=== PATIENT | female | born 1980 | race African-American/Black ===

== ENCOUNTER 2016-12-17 15:45 | Emergency (ER) | payer BC, OTHER ==
[~2016-12-17] VITALS: Ht 175.3 cm; Wt 138.8 kg
[~2016-12-17 15:45] MED LIST: CHOL10003 PO; DULO20CA PO; HYDR1TAB12 PO; MULT-55 PO; MULT1TAB52 PO; NAPR220C4 PO; NORG1TAB6 PO; VENTOLIN HFA18 GM INH
[2016-12-17 15:54] VITALS: BP 211/114
[2016-12-17] MEDS ORDERED: CYCL10TA2 PO (16:18)
[2016-12-17] MEDS ORDERED: NAPR550T PO (16:18)
[2016-12-17] MEDS ORDERED: HYDR-971 PO (16:18)
--- NOTE | 2016-12-17 16:18 | PHYS DOC ---
Past Medical History Past Medical History: Arthritis, Asthma, Fibromyalgia, Pneumonia, Other Additional Past Medical Histor: CHRONIC KNEE PAIN Past Surgical History: Cholecystectomy Alcohol Use: Rarely Drug Use: None Adult General Chief Complaint Chief Complaint: SHOULDER INJURY [facility] HPI Patient is a 36 year old female presents emergency room with 2 weeks of atraumatic right shoulder pain. 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 Patient also reports that she has a history of fibromyalgia. She denies any history of inflammatory arthritide's or neuromuscular diseases. Patient denies any alterations in sensation or focal weakness. Review of Systems Review of Systems Constitutional: Denies fever or chills [] Eyes: Denies change in visual acuity, redness, or eye pain [] HENT: Denies nasal congestion or sore throat [] Respiratory: Denies cough or shortness of breath [] Cardiovascular: No additional information not addressed in HPI [] GI: Denies abdominal pain, nausea, vomiting, bloody stools or diarrhea [] : Denies dysuria or hematuria [] Musculoskeletal: Denies back pain or joint pain [] Integument: Denies rash or skin lesions [] Neurologic: Denies headache, focal weakness or sensory changes [] Endocrine: Denies polyuria or polydipsia [] Allergies Allergies Allergies Coded Allergies Type Severity Reaction Last Updated Verified lisinopril Allergy Intermediate Cough 10/16/14 Yes Physical Exam Physical Exam Constitutional: Well developed, well nourished, mild distress, non-toxic appearance. Patient is tearful even though she's been incurring this atraumatic right shoulder pain for 2 weeks. HENT: Normocephalic, atraumatic, bilateral external ears normal, oropharynx moist, no oral exudates, nose normal. [] Eyes: PERRLA, EOMI, conjunctiva normal, no discharge. [] Neck: Normal range of motion, no tenderness, supple, no stridor. Cardiovascular:Heart rate regular rhythm, no murmur [] Lungs & Thorax: Bilateral breath sounds clear to auscultation [] Abdomen: Bowel sounds normal, soft, no tenderness, no masses, no pulsatile masses. [] Skin: Warm, dry, no erythema, no rash.. There are no skin lesions. Back: No tenderness, no CVA tenderness. [] Extremities: Right shoulder is normal in appearance. There is tenderness to palpation to the medial border of the right scapula that extends into the supra scapular region and into the right deltoid area. There is no palpable defect, deformity, instability or crepitus. Patient is able to demonstrate full active range of motion and full passive range of motion without derangement. There is no palpable instability or crepitus upon range of motion. Right upper extremity is neurovascularly intact with capillary refill less than 2 seconds in the fingers. Neurologic: Alert and oriented X 3, normal motor function, normal sensory function, no focal deficits noted. [] Psychologic: Affect normal, judgement normal, mood normal. [] Current Patient Data Vital Signs Vital Signs Date Time Temp Pulse Resp B/P Pulse Ox O2 Delivery O2 Flow Rate FiO2 12/17/16 15:54 97.5 104 22 100 Room Air 97.5 EKG EKG [] Radiology/Procedures Radiology/Procedures [] Course & Med Decision Making Course & Med Decision Making Pertinent Labs and Imaging studies reviewed. (See chart for details) [] Dragon Disclaimer Dragon Disclaimer This electronic medical record was generated, in whole or in part, using a voice recognition dictation system. Departure Departure Impression: Primary Impression: Myofascial pain Disposition: HOME, SELF-CARE Condition: GOOD Referrals: NO PCP (PCP) Patient Instructions: Myofascial Pain Syndrome Additional Instructions: 1. Take the medications prescribed. 2. Review the discharge instructions provided for home care and reasons to return to the emergency department. 3. Follow-up with [facility] next week as planned. Scripts Hydrocodone/Apap 5-325 (Rison 5-325 Tablet)1 Each Tablet1 Tab PO at bedtime PRN PAIN #10 TAB Ref 0 Prov:BRANNON LVOELACE 12/17/16 Naproxen Sodium (Anaprox Ds)550 Mg Tablet1 Tab PO PRN Q12HRS #20 TAB Prov:BRANNON LOVELACE 12/17/16 Cyclobenzaprine Hcl 10 Mg Tablet1 Tab PO daily at bedtime #10 TAB Prov:BRANNON LOVELACE 12/17/16 BRANNON LOVELACE Dec 17, 2016 16:18
== END 2016-12-17 16:27 | disposition home or self-care (01) ==
LOC: ER 15:45
DX: M79.1 Myalgia (principal); M25.511 Pain in right shoulder; M79.7 Fibromyalgia; M19.90 Unspecified osteoarthritis, unspecified site; J45.909 Unspecified asthma, uncomplicated; G89.29 Other chronic pain; Z88.8 Allergy status to other drugs, medicaments and biological substances
CPT/HCPCS: 99283

== ENCOUNTER 2017-03-02 15:43 | Emergency (ER) | payer BC, OTHER ==
[~2017-03-02] VITALS: Ht 175.3 cm; Wt 127.5 kg
[~2017-03-02 15:43] MED LIST changes: +CYCL10TA2 PO; +HYDR-971 PO; +NAPR550T PO
[2017-03-02 15:50] VITALS: BP 154/87
--- NOTE | 2017-03-02 16:04 | PHYS DOC ---
Past Medical History Past Medical History: Arthritis, Asthma, Fibromyalgia, Pneumonia, Other Additional Past Medical Histor: CHRONIC KNEE PAIN, castlemans disease Past Surgical History: Cholecystectomy Additional Past Surgical Histo: lilver biopsy, neck biospys, dilation and curretage Additional Information: quit smoking 3 years ago Alcohol Use: Rarely Drug Use: None Adult General Chief Complaint Chief Complaint: ASTHMA HPI HPI Patient is a 36 year old female presents emergency Department today. 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 Patient states that she used her inhaler twice and began to feel much better. She states that this time she has not been experiencing any facial swelling, throat swelling or difficulty breathing. Review of Systems Review of Systems Constitutional: Denies fever or chills [] Eyes: Denies change in visual acuity, redness, or eye pain [] HENT: Denies nasal congestion or sore throat [] Respiratory: Denies cough or shortness of breath [] Cardiovascular: No additional information not addressed in HPI [] GI: Denies abdominal pain, nausea, vomiting, bloody stools or diarrhea [] : Denies dysuria or hematuria [] Musculoskeletal: Denies back pain or joint pain [] Integument: Denies rash or skin lesions [] Neurologic: Denies headache, focal weakness or sensory changes [] Endocrine: Denies polyuria or polydipsia [] Allergies Allergies Allergies Coded Allergies Type Severity Reaction Last Updated Verified lisinopril Allergy Intermediate Cough 10/16/14 Yes tramadol Allergy Intermediate rash 03/02/17 Yes Physical Exam Physical Exam Constitutional: Well developed, well nourished, no acute distress, non-toxic appearance. [] HENT: Normocephalic, atraumatic, bilateral external ears normal, oropharynx moist, no oral exudates, nose normal. There is no angioedema. Eyes: PERRLA, EOMI, conjunctiva normal, no discharge. There is no periorbital swelling or lid swelling. Tear film is clear. Neck: Normal range of motion, no tenderness, supple, no stridor. Cardiovascular:Heart rate regular rhythm, no murmur [] Lungs & Thorax: There is no respiratory distress respiratory fatigue. There is no posturing or sensory muscle use. Lungs are clear to auscultation bilaterally. Abdomen: Bowel sounds normal, soft, no tenderness, no masses, no pulsatile masses. [] Skin: Warm, dry, no erythema, no rash. [] Back: No tenderness, no CVA tenderness. [] Extremities: No tenderness, no cyanosis, no clubbing, ROM intact, no edema. [] Neurologic: Alert and oriented X 3, normal motor function, normal sensory function, no focal deficits noted. [] Psychologic: Affect normal, judgement normal, mood normal. [] Current Patient Data Vital Signs Vital Signs Date Time Temp Pulse Resp B/P Pulse Ox O2 Delivery O2 Flow Rate FiO2 03/02/17 15:50 97.5 79 18 154/87 100 Room Air 97.5 EKG EKG [] Radiology/Procedures Radiology/Procedures [] Course & Med Decision Making Course & Med Decision Making Pertinent Labs and Imaging studies reviewed. (See chart for details) [] Dragon Disclaimer Dragon Disclaimer This electronic medical record was generated, in whole or in part, using a voice recognition dictation system. Departure Departure Impression: Primary Impression: Inhalation of gaseous substance Disposition: HOME, SELF-CARE Condition: GOOD Referrals: UNKNOWN PCP NAME (PCP) Patient Instructions: Chemical Inhalation Additional Instructions: 1. At this time, there is no evidence of facial swelling, airway swelling or respiratory difficulty. 2. You're safe to go home. 3. Follow-up with your primary care doctor if there are any concerns. BRANNON LOVELACE Mar 02, 2017 16:04
== END 2017-03-02 16:15 | disposition home or self-care (01) ==
LOC: ER 15:43
DX: T65.891A Toxic effect of other specified substances, accidental (unintentional), initial encounter (principal); R06.2 Wheezing; G89.29 Other chronic pain; J45.909 Unspecified asthma, uncomplicated; M79.7 Fibromyalgia; Z87.891 Personal history of nicotine dependence; M19.90 Unspecified osteoarthritis, unspecified site; D47.Z2 Castleman disease; Z88.8 Allergy status to other drugs, medicaments and biological substances; Z88.6 Allergy status to analgesic agent; Y92.811 Bus as the place of occurrence of the external cause
CPT/HCPCS: 99281

== ENCOUNTER 2017-08-11 21:21 | Emergency (ER) | payer BC, OTHER ==
[~2017-08-11 21:21] MED LIST changes: +NAPR-682 PO; -NAPR550T PO
[2017-08-11] MEDS ORDERED: IPRATRPIUM/ALBUTEROL 0.5/2.5MG 3 ML NEBU. NEB ONE (21:45)
[2017-08-11] MEDS ORDERED: LIDO:MAALOX:DONNATAL 1:1:1 15 ML SINGLE DOSE SWSW ONE (22:45)
[2017-08-11 23:25] VITALS: BP 160/76
[2017-08-11] MEDS ORDERED: BENZ100C PO (23:58)
[2017-08-11] MEDS ORDERED: PROVENTIL HFA6.7 GM IH (23:58)
--- NOTE | 2017-08-12 01:32 | ED.ADGEN ---
Past Medical History Past Medical History: Arthritis, Asthma, Fibromyalgia, Pneumonia, Other Additional Past Medical Histor: CHRONIC KNEE PAIN, castlemans disease Past Surgical History: Cholecystectomy Additional Past Surgical Histo: lilver biopsy, neck biospys, dilation and curretage Alcohol Use: Rarely Drug Use: None Adult General Chief Complaint Chief Complaint: MULTIPLE COMPLAINTS HPI HPI Patient is a 36 year old woman, history of asthma, Castleman's disease, chronic knee pain, who presents to the emergency department with a complaint of sore throat, cough, chest tightness, and wheezing that began today. 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 Patient states that her symptoms worse after this exposure. She states that she has not taken any medication prior to coming to her ED, and believes that her albuterol inhaler is out of date. She denies any nausea or vomiting, any headache, complains of mild clear rhinorrhea, denies any back or flank pain, any urinary complaints, any weakness, numbness, tingling, vision changes, rashes, swelling of the extremities. Denies any specific sick contacts or exposures, patient is around children. Review of Systems Review of Systems Constitutional: Denies fever or chills. [] Eyes: Denies change in visual acuity. [] HENT: Rhinorrhea, sore throat. Respiratory: Cough productive of white sputum, shortness of breath or chest tightness and wheezing. Cardiovascular: Tightness across the anterior portion of her chest, no edema. GI: Denies abdominal pain, nausea, vomiting, bloody stools or diarrhea. [] : Denies dysuria. [] Musculoskeletal: Denies back pain or joint pain. [] Integument: Denies rash. [] Neurologic: Denies headache, focal weakness or sensory changes. [] Endocrine: Denies polyuria or polydipsia. [] Lymphatic: Denies swollen glands. [] Psychiatric: Denies depression or anxiety. [] Current Medications Current Medications Current Medications Medications (Trade) Dose Ordered Sig/Vaishali Start Time Stop Time Status Last Admin Dose Admin Albuterol/ Ipratropium (Duoneb) 3 ml 1X ONCE 08/11/17 21:45 08/11/17 21:46 DC 08/11/17 21:41 3 ML Multi-Ingredient Mouthwash/Gargle (Gi Cocktail Single Dose) 15 ml 1X ONCE 08/11/17 22:45 08/11/17 22:46 DC 08/11/17 22:48 15 ML Allergies Allergies Allergies Coded Allergies Type Severity Reaction Last Updated Verified lisinopril Allergy Intermediate Cough 10/16/14 Yes tramadol Allergy Intermediate rash 03/02/17 Yes Physical Exam Physical Exam Constitutional: Well developed, well nourished, no acute distress, non-toxic appearance. [] HENT: Normocephalic, atraumatic, bilateral external ears normal, oropharynx moist, patient is erythema of the oropharynx, no exudates, no swelling or evidence of peritonsillar abscess or other abnormalities identified, mucosa otherwise normal, normal dentition, no oral exudates, nose normal. [] Eyes: PERRLA, EOMI, conjunctiva normal, no discharge. [] Neck: Normal range of motion, no tenderness, supple, no stridor. [] Cardiovascular:Heart rate regular rhythm, no murmur , S1, S2, rubs or gallops.[] Lungs & Thorax: Bilateral breath sounds clear to auscultation, no rhonchi, rales. No chest wall crepitus or tenderness. [] Abdomen: Bowel sounds normal, soft, no tenderness, no masses, no pulsatile masses. [] Skin: Warm, dry, no erythema, no rash. [] Back: No tenderness, no CVA tenderness. [] Extremities: No tenderness, no cyanosis, no clubbing, ROM intact, no edema. Negative Homans sign. [] Neurologic: Alert and oriented X 3, normal motor function, normal sensory function, no focal deficits noted. [] Psychologic: Affect normal, judgement normal, mood normal. [] Current Patient Data Vital Signs Vital Signs Date Time Temp Pulse Resp B/P (MAP) Pulse Ox O2 Delivery O2 Flow Rate FiO2 08/11/17 23:25 84 18 160/76 (104) 99 Room Air 08/11/17 21:25 98.9 98.9 Lab Values Laboratory Tests Test 08/11/17 22:58 POC Urine HCG, Qualitative Hcg negative (Negative) EKG EKG EC: Sinus rhythm, heart rate 77 beats/minute, upright axis, QTC of 447, [place] 12, QRS of 78, patient with T-wave inversions noted in V2 and V3, no ST elevations or depressions, no other abnormalities identified. As interpreted by me. Radiology/Procedures Radiology/Procedures Chest x-ray: PA and lateral: 2 view: Patient with suboptimal story effort, however normal cardiac silhouette is noted, normal pulmonary silhouette, no infiltrates, no effusions, pneumothorax, no soft tissue or bony abnormalities identified. Compared to prior, no changes identified. As interpreted by me. Course & Med Decision Making Course & Med Decision Making Pertinent Labs and Imaging studies reviewed. (See chart for details) Patient received a DuoNeb in the ED, on reevaluation states that she is feeling much better. Strep swab obtained which was negative, patient's examination is most consistent with a viral infection. No evidence normalities on chest x-ray. I did discuss this with patient at bedside, she has received a GI cocktail, with resolution of sore throat and abdominal symptoms. Patient is relieved with these findings. Discussed importance of hydration, use [id number] medications such as acetaminophen and ibuprofen, patient was also given a prescription for her outdated albuterol, and pressure for Tessalon Perle. We did discuss concerning symptoms that prompt return to the emergency department, patient voiced understanding and agreement with plan as stated. Additionally, patient was given a work note. Patient discharged home in stable condition with plan, prescriptions, and precautions as above. Dragon Disclaimer Dragon Disclaimer This electronic medical record was generated, in whole or in part, using a voice recognition dictation system. Departure Disposition: 01 HOME, SELF-CARE Condition: IMPROVED Scripts Albuterol Sulfate (PROVENTIL HFA INHALER) 6.7 Gm Hfa.aer.ad 1 PUFF IH PRN Q4HRS Y for FOR ASTHMA, #1 INHALER 0 Refills Prov: ARASELI MATTHEWS DO 08/11/17 Benzonatate (TESSALON PERLE) 100 Mg Capsule 100 MG PO PRN TID Y for COUGH, #15 CAP Prov: ARASELI MATTHEWS DO 08/11/17 ARASELI MATTHEWS DO Aug 12, 2017 01:32
[2017-08-12 07:33] LABS: NEGATIVE OBC STREP NEG; POSITIVE OBC STREP POS
--- NOTE | 2017-08-12 07:33 | RAD ---
Chest, 2 views, 08/11/2017: History: Cough Comparison is made to a study from 10/16/2014. The heart size and pulmonary vascularity are normal. A minimal streaky opacity in the right upper lobe has improved since the previous study. This probably represents scarring. Recurrent atelectasis is less likely. No pulmonary consolidation is seen. There is no evidence of pleural fluid. Mild spurring is present in the spine. IMPRESSION: 1. Minimal right upper lobe parenchymal scarring. 2. No acute cardiopulmonary abnormality is detected.
== END 2017-08-12 00:20 | disposition home or self-care (01) ==
LOC: ER 21:21
DX: J02.9 Acute pharyngitis, unspecified (principal); R05 Cough; R07.89 Other chest pain; R10.10 Upper abdominal pain, unspecified; J34.89 Other specified disorders of nose and nasal sinuses; R06.02 Shortness of breath; R06.2 Wheezing; M19.90 Unspecified osteoarthritis, unspecified site; J45.909 Unspecified asthma, uncomplicated; M79.7 Fibromyalgia; G89.29 Other chronic pain; Z87.01 Personal history of pneumonia (recurrent); Z88.5 Allergy status to narcotic agent; Z88.8 Allergy status to other drugs, medicaments and biological substances
CPT/HCPCS: 71020; 81025; 87070; 87880; 94250; 94640; 99285; J7620

== ENCOUNTER 2018-11-18 16:57 | Emergency (ER) | payer BC, OTHER ==
[~2018-11-18] VITALS: Ht 175.3 cm; Wt 136.1 kg
[~2018-11-18 16:57] MED LIST changes: +ALBU2.5V8 IH; +BENZ100C PO; +HYDR-3164 PO; -HYDR-971 PO
[2018-11-18 18:19] VITALS: BP 152/95
--- NOTE | 2018-11-18 19:38 | PHYS DOC ---
Past Medical History Past Medical History: Arthritis, Asthma, Fibromyalgia, Pneumonia, Other Additional Past Medical Histor: CHRONIC KNEE PAIN, castlemans disease Past Surgical History: Cholecystectomy Additional Past Surgical Histo: lilver biopsy, neck biospys, dilation and curretage Alcohol Use: Rarely Drug Use: None Adult General Chief Complaint Chief Complaint: COUGH HPI HPI Patient is a 37 year old female who presents to the emergency room with complaints of a sore throat, a productive cough with yellow sputum, nausea, pounding headache, and feelings of lightheadedness for the last 4 days. Pt denies any ear pain, abdominal pain, vomiting or diarrhea. She states she feels nauseated. She denies any shortness of breath or syncope, states that she has felt wheezy at times. Review of Systems Review of Systems Constitutional: Denies fever or chills [] Eyes: Denies redness, or eye pain [] HENT: See HPI Respiratory: See hPI Cardiovascular: No additional information not addressed in HPI [] GI: Denies abdominal pain, vomiting, or diarrhea; reports nausea Integument: Denies rash or skin lesions [] Neurologic: Denies headache, focal weakness or sensory changes [] All other systems were reviewed and found to be within normal limits, except as documented in this note. Allergies Allergies Allergies Coded Allergies Type Severity Reaction Last Updated Verified lisinopril Allergy Intermediate Cough 10/16/14 Yes tramadol Allergy Intermediate rash 03/02/17 Yes Physical Exam Physical Exam Constitutional: Well developed, well nourished, no acute distress, non-toxic appearance, obese[] HENT: Normocephalic, atraumatic, bilateral external ears normal, bilateral TMs normal, posterior pharynx normal, oropharynx moist, no oral exudates, nose normal; hoarse voice noted. [] Eyes: conjunctiva normal, no discharge. [] Neck: Normal range of motion, no tenderness, supple, no stridor. [] Cardiovascular:Heart rate regular rhythm, no murmur [] Lungs & Thorax: Bilateral breath sounds clear to auscultation [] Skin: Warm, dry, no erythema, no rash. [] Extremities: No cyanosis, no clubbing, ROM intact Neurologic: Alert and oriented X 3, normal motor function, normal sensory function, no focal deficits noted. [] Psychologic: Affect normal, judgement normal, mood normal. [] Current Patient Data Vital Signs Vital Signs Date Time Temp Pulse Resp B/P (MAP) Pulse Ox O2 Delivery O2 Flow Rate FiO2 11/18/18 18:19 98.1 89 18 152/95 (114) 98 Room Air 98.1 EKG EKG [] Radiology/Procedures Radiology/Procedures rapid strep negative[] Course & Med Decision Making Course & Med Decision Making Pertinent Labs and Imaging studies reviewed. (See chart for details) DX: URI, pharyngitis, laryngitis Prescriptions for tessalon perrles and proair. Avoid airway irritants Increase clear fluids and rest, cool mist humidifier [] Dragon Disclaimer Dragon Disclaimer This electronic medical record was generated, in whole or in part, using a voice recognition dictation system. Departure Departure Impression: Primary Impression: Upper respiratory infection Additional Impressions: Laryngitis Pharyngitis Disposition: 01 HOME, SELF-CARE Condition: STABLE Referrals: UNKNOWN PCP NAME (PCP) Patient Instructions: Laryngitis, [id number], Upper Respiratory Infection, Adult, [id number] Additional Instructions: Fill prescriptions and use as directed. Recommend warm salt water gargles as needed for relief of discomfort. Alternate Tylenol and ibuprofen as needed for fever/pain. Avoid exposure to airway irritants such as smoke, dust, perfumes, and animal dander. Follow-up with primary care doctor if symptoms persist. Return to the ER if symptoms worsen. Scripts Albuterol Sulfate (PROAIR HFA INHALER) 8.5 Gm Hfa.aer.ad 1-2 PUFF INH PRN Q6HRS PRN for SHORTNESS OF BREATH, #1 INHALER 0 Refills Prov: ART RANGEL [employer] 11/18/18 Benzonatate (TESSALON PERLE) 100 Mg Capsule 1 CAP PO TID, #21 CAP 0 Refills Prov: ART RANG[employer] 11/18/18 Problem Qualifiers Primary Impression: Upper respiratory infection URI type: unspecified URI Qualified Codes: J06.9 - Acute upper respiratory infection, unspecified Additional Impressions: Pharyngitis Pharyngitis/tonsillitis etiology: unspecified etiology Qualified Codes: J02.9 - Acute pharyngitis, unspecified [employer] Nov 18, 2018 19:38
[2018-11-18] MEDS ORDERED: BENZ100C PO (19:43)
[2018-11-18] MEDS ORDERED: ALBU2.5V8 INH (19:43)
== END 2018-11-18 20:02 | disposition home or self-care (01) ==
LOC: ER 16:57
DX: J04.0 Acute laryngitis (principal); J02.9 Acute pharyngitis, unspecified; G89.29 Other chronic pain; J45.909 Unspecified asthma, uncomplicated; Z88.6 Allergy status to analgesic agent; Z88.8 Allergy status to other drugs, medicaments and biological substances
CPT/HCPCS: 87070; 87880; 99283

== ENCOUNTER 2020-06-28 23:41 | Emergency (ER) | payer OTHER, MEDICARE ==
[~2020-06-28] VITALS: Ht 175.3 cm; Wt 150.0 kg
[~2020-06-28 23:41] MED LIST changes: -ALBU2.5V8 IH; +ALBU2.5V8 INH; -HYDR1TAB12 PO; +HYDR1TAB13 PO; +MULT-445 PO; -MULT1TAB52 PO; +PROVENTIL HFA6.7 GM IH
[2020-06-29 00:31] LABS: BILIRUBIN,URINE NEGATIVE (NEG); CLARITY,URINE CLOUDY; COLOR,URINE YELLOW; NITRITE,URINE NEGATIVE (NEG); PROTEIN,URINE 30 mg/dL (NEG-TRACE)
[2020-06-29 00:40] LABS: WBC,URINE >40 /HPF (0-4)
[2020-06-29 00:41] LABS: AMORPHOUS SEDIMENT,UR PRESENT /HPF; BACTERIA,URINE MANY /HPF (0-FEW); SQUAMOUS EPITHELIAL CELL,UR MANY /LPF
--- NOTE | 2020-06-29 00:56 | PHYS DOC ---
Past Medical History Past Medical History: Diabetes-Type II, Fibromyalgia, High Cholesterol, H ypertension Additional Past Medical Histor: CHRONIC KNEE PAIN, castlemans disease Past Surgical History: Cholecystectomy, Other Additional Past Surgical Histo: LYMPH NODE REMOVAL ON NECK AND LEFT ARM PIT; D&C; LIVER BIOPSY Smoking Status: Former Smoker Alcohol Use: Occasionally Drug Use: None General Adult EDM: Chief Complaint: FLANK PAIN HPI: HPI: Patient is a 39 year old female who presents with R flank pain. Patient states that 3 hours ago she had sudden onset flank pain which has now moved into her RLQ. She has associated nausea and difficulty urinating. She denies any hematuria, smell to her urine, dysuria. She is not had any vaginal bleeding or discharge. She last got chemotherapy last week. She denies any vomiting, diarrhea, constipation. Review of Systems: Review of Systems: General: Denies fever, chills, sweats, fatigue Eyes: Denies drainage, blurred vision, eye redness HENT: Denies rhinorrhea, sore throat, earache Respiratory: Denies cough, shortness of breath, wheezing Cardiac: Denies edema, palpitations, chest pain GI: Reports abdominal pain, flank pain, nausea MSK: Denies back pain, neck pain Skin: Denies rash, jaundice Neuro: Denies headache, dizziness Psychiatric: Denies SI/HI Heart Score: Risk Factors: Risk Factors: DM, Current or recent (<one month) smoker, HTN, HLP, family history of CAD, obesity. Risk Scores: Score 0 - 3: 2.5% MACE over next 6 weeks - Discharge Home Score 4 - 6: 20.3% MACE over next 6 weeks - Admit for Clinical Observation Score 7 - 10: 72.7% MACE over next 6 weeks - Early Invasive Strategies Allergies: Allergies: Allergies Coded Allergies Type Severity Reaction Last Updated Verified lisinopril Allergy Intermediate Cough 10/16/14 Yes tramadol Allergy Intermediate rash 03/02/17 Yes Physical Exam: PE: General: Awake, alert, distressed. Well Nourished, well hydrated. Cooperative HEENT: Atraumatic, EOMI, PERRL, airway patent, moist oral mucosa Neck: Supple, trachea midline Respiratory: CTA bilaterally, normal effort, no wheezing/crackles CV: RRR, no murmur, cap refill <2 GI: Soft, nondistended, parades sided tenderness, no masses MSK: No obvious deformities Skin: Warm, dry, intact Neuro: A&O x3, speech NL, sensory and motor grossly intact, no focal deficits Psych: Normal affect, normal mood, not suicidal or homicidal Current Patient Data: Labs: Laboratory Tests Test 06/28/20 23:52 06/29/20 00:15 POC Urine HCG, Qualitative Hcg negative (Negative) Urine Collection Type Unknown Urine Color Yellow Urine Clarity Cloudy Urine pH 6.0 (<5.0-8.0) Urine Specific Standish 1.025 (1.000-1.030) Urine Protein 30 mg/dL (NEG-TRACE) Urine Glucose (UA) Negative mg/dL (NEG) Urine Ketones (Stick) Negative mg/dL (NEG) Urine Blood Large (NEG) Urine Nitrite Negative (NEG) Urine Bilirubin Negative (NEG) Urine Urobilinogen Dipstick 1.0 mg/dL (0.2 mg/dL) Urine Leukocyte Esterase Large (NEG) Urine RBC 6-10 /HPF (0-2) Urine WBC >40 /HPF (0-4) Urine Squamous Epithelial Cells Many /LPF Urine Amorphous Sediment Present /HPF Urine Bacteria Many /HPF (0-FEW) Urine Mucus Marked /LPF Vital Signs: Vital Signs Date Time Temp Pulse Resp B/P (MAP) Pulse Ox O2 Delivery O2 Flow Rate FiO2 06/29/20 00:24 98.2 92 19 150/85 (106) 97 Room Air 98.2 EKG: EKG: [] Radiology/Procedures: Radiology/Procedures: [] Course & Med Decision Making: Course & Med Decision Making Pertinent Labs and Imaging studies reviewed. (See chart for details) Patient is a 9-year-old female who presents emergency room complaining of severe flank pain and difficulty urinating. There is concern at this time for a kidney stone versus pyelonephritis. UA, abdominal labs, CT abdomen pelvis without contrast were ordered. Patient was given morphine for pain. Pain resolved with morphine and did not return. Ultrasound shows an ovarian cyst which is likely the cause of her pain. There is no signs of torsion. Patient's test results and vitals while in the ED were fully reviewed and discussed with the patient. Patient is stable and at this time does not need admission to the hospital. We have discussed strict return precautions and the importance of following up with their Primary Care Physician. Patient stated understanding and was given an opportunity to ask any questions. Patient is in agreement with plan. Dragon Disclaimer: Dragon Disclaimer: This electronic medical record was generated, in whole or in part, using a voice recognition dictation system. Departure Departure Impression: Primary Impression: Flank pain Additional Impression: Ovarian cyst Disposition: HOME, SELF-CARE Condition: STABLE Referrals: UNKNOWN PCP NAME (PCP) Patient Instructions: Ovarian Cyst, [id number] Justicifation of Admission Dx: Justifications for Admission: Justification of Admission Dx: Yes JAKE HERRMANN MD Jun 29, 2020 00:55
[2020-06-29 01:11] LABS: BASO # 0.1 x10^3/uL (0.0-0.2); BASO % 1 % (0-3); EOS # 0.5 x10^3/uL (0.0-0.7); EOS % 6 % (0-3); HEMATOCRIT 43.2 % (36.0-47.0); LYMPH % 12 % (24-48); MEAN CORPUSCULAR HEMOGLOBIN 31 pg (25-35); MEAN CORPUSCULAR HGB CONC 35 g/dL (31-37); MEAN CORPUSCULAR VOLUME 88 fL (79-100); MONO # 0.6 x10^3/uL (0.0-1.1); MONO % 7 % (0-9); NEUT # 6.1 x10^3/uL (1.8-7.7); NEUT % 74 % (31-73); PLATELET COUNT 355 x10^3/uL (140-400); RED BLOOD COUNT 4.92 x10^6/uL (3.50-5.40); WHITE BLOOD COUNT 8.3 x10^3/uL (4.0-11.0)
[2020-06-29] MEDS ORDERED: MORPHINE SULFATE 10 MG/ML VIAL. IV ONE (01:30)
--- NOTE | 2020-06-29 01:31 | RAD ---
CT abdomen and pelvis without contrast: Reason for examination: Right flank pain. Comparison is made to previous study dated 05/21/2015. Helical images were obtained through the abdomen pelvis with no intravenous or oral contrast administered. Reconstruction was performed in sagittal and coronal planes. Exposure: One or more of the following individualized dose reduction techniques were utilized for this examination: 1. Automated exposure control 2. Adjustment of the mA and/or kV according to patient size 3. Use of iterative reconstruction technique. The lung bases are clear. The heart size is normal with no pericardial effusion. No abnormality seen at the liver, adrenal glands or pancreas. The gallbladder surgically absent. The spleen contains splenic granuloma. The abdominal aorta and inferior vena cava show no gross abnormalities. The colon shows no diverticulosis, diverticulitis or colitis. The appendix is not identified and is probably surgically absent. No abnormality seen at the small intestinal tract or stomach. The kidneys show a small 1 cm nodule posteriorly in the lower pole of the right kidney which does not appear cystic. 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 No other renal masses, renal calculi, hydronephrosis or obstructive uropathy is seen. No abnormality seen at the bladder or uterus. There is however a 2.8 cm hypoechoic nodule in the right ovary. This may represent a cyst but can be further evaluated with ultrasound. No free fluid or free air seen in the abdomen or pelvis. 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 1 cm solid-appearing nodule at the lower pole of the right kidney posteriorly. No obstructive uropathy. 2.8 cm hypoechoic lesion in the right ovary possibly cystic. Recommend further evaluation with ultrasound. Electronically signed by: Hermelinda Kamara MD (06/29/2020 1:28 AM) [id number]
[2020-06-29 01:37] LABS: CALCIUM 9.2 mg/dL (8.5-10.1); GFR 74.7; POTASSIUM 3.4 mmol/L (3.5-5.1)
[2020-06-29 01:43] LABS: ALBUMIN/GLOBULIN RATIO 1.5 (1.0-1.7); TOTAL BILIRUBIN 1.4 mg/dL (0.2-1.0); TOTAL PROTEIN 6.7 g/dL (6.4-8.2)
--- NOTE | 2020-06-29 03:30 | RAD ---
Pelvic ultrasound with transvaginal: Reason for examination: Right pelvic pain with possible right ovarian cyst. Transabdominal transvaginal ultrasound examination of the pelvis was performed. Transabdominally, no abnormality seen in the bladder. Uterus and ovaries are not optimally visualized transabdominally. Transvaginally, uterus measures 8.4 x 4.6 x 6.0 cm in greatest dimensions. Endometrium is not abnormally thickened at 0.19 cm. There are multiple nabothian cysts in the cervix with the largest measuring 1.2 cm in size. The right ovary measures 4.2 x 2.7 x 2.9 cm in greatest dimension shows good vascular flow. There is however a 2.6 cm cyst in the right ovary. The left ovary measures 3.4 x 2.6 x 2.3 cm in greatest dimension with good vascular flow and several small cysts present. There is a septated 1.1 cm cyst present. No free fluid is seen in the pelvis. IMPRESSION: 2.6 cm cyst in the right ovary. Several small cysts in the left ovary with a 1.1 cm septated cyst present. Nabothian cysts measuring up to 1.2 cm in size in the cervix. Electronically signed by: Hermelinda Kamara MD (06/29/2020 3:27 AM) [id number]
[2020-06-29 04:30] VITALS: BP 134/81
[2020-06-29] MEDS ORDERED: HEPARIN PF 500 UNIT/5 ML DISP.SYRIN. IVP ONE ×2 (04:38→05:30)
== END 2020-06-29 04:44 | disposition home or self-care (01) ==
LOC: ER 23:41
DX: N88.8 Other specified noninflammatory disorders of cervix uteri (principal); E11.9 Type 2 diabetes mellitus without complications; E78.00 Pure hypercholesterolemia, unspecified; I10 Essential (primary) hypertension; G89.29 Other chronic pain; Z87.891 Personal history of nicotine dependence; Z88.6 Allergy status to analgesic agent; Z88.8 Allergy status to other drugs, medicaments and biological substances
CPT/HCPCS: 36415; 74176; 76830; 76856; 80053; 81001; 81025; 85025; 96374; 99285; J2270

== ENCOUNTER 2021-11-26 13:55 | Emergency (ER) | payer OTHER, MEDICARE ==
[~2021-11-26] VITALS: Ht 175.3 cm; Wt 136.4 kg
[~2021-11-26 13:55] MED LIST changes: +CYCL10TA19 PO; -CYCL10TA2 PO; -MULT-55 PO; +MULT-684 PO
[2021-11-26] MEDS ORDERED: predniSONE 20 MG TABLET PO ONE (18:30)
[2021-11-26] MEDS ORDERED: IPRATRPIUM/ALBUTEROL 0.5/2.5MG 3 ML NEBU. NEB ONE (18:30)
[2021-11-26 18:59] LABS: INFLUENZA A PATIENT NEGATIVE (NEGATIVE); INFLUENZA B PATIENT NEGATIVE (NEGATIVE)
--- NOTE | 2021-11-26 19:23 | PHYS DOC ---
Past Medical History Past Medical History: Asthma, Diabetes-Type II, Fibromyalgia, High Cholesterol, Hypertension Additional Past Medical Histor: CASTLEMAN DISEASE, OSTEOARTHRITIS, TACHYCARDIA (FELIX GARNER APRN) Past Surgical History: Cholecystectomy Additional Past Surgical Histo: DNC, LIVER BX, LEFT BREAST BX (FELIX GARNER APRN) Smoking Status: Never Smoker Alcohol Use: Occasionally Drug Use: None (FELIX GARNER APRN) General Adult EDM: Chief Complaint: ASTHMA HPI: HPI: Patient is a 41-year-old female that presents today with exacerbation of her asthma. She said over the last 4 to 5 days she has had increased cough and tightness in her chest due to her asthma. She denies fever and chills but does states she has a cough. She states that she has had both her Pfizer vaccines along with the booster that she got in June. She just got her influenza and pneumonia vaccine in September of this year. (FELIX GARNER APRN) Review of Systems: Review of Systems: Constitutional: Denies fever or chills. [] Eyes: Denies change in visual acuity. [] HENT: Denies nasal congestion or sore throat. [] Respiratory: cough or shortness of breath. [] Cardiovascular: Denies chest pain or edema. [] GI: Denies abdominal pain, nausea, vomiting, bloody stools or diarrhea. [] : Denies dysuria. [] Musculoskeletal: Denies back pain or joint pain. [] Integument: Denies rash. [] Neurologic: Denies headache, focal weakness or sensory changes. [] Endocrine: Denies polyuria or polydipsia. [] Lymphatic: Denies swollen glands. [] Psychiatric: Denies depression or anxiety. [] (FELIX GARNER STRAP MAKING MACHINE OPERATOR) Heart Score: C/O Chest Pain: N/A Risk Factors: Risk Factors: DM, Current or recent (<one month) smoker, HTN, HLP, family history of CAD, obesity. Risk Scores: Score 0 - 3: 2.5% MACE over next 6 weeks - Discharge Home Score 4 - 6: 20.3% MACE over next 6 weeks - Admit for Clinical Observation Score 7 - 10: 72.7% MACE over next 6 weeks - Early Invasive Strategies (FELIX GARNER APRN) Current Medications: Current Medications Medications (Trade) Dose Ordered Sig/Vaishali Start Time Stop Time Status Last Admin Dose Admin Albuterol/ Ipratropium (Duoneb) 3 ml 1X ONCE 11/26/21 18:30 11/26/21 18:31 DC 11/26/21 18:47 3 ML Prednisone (Prednisone) 60 mg 1X ONCE 11/26/21 18:30 11/26/21 18:31 DC 11/26/21 18:45 60 MG (FELIX GARNER APRN) Allergies: Allergies: Allergies Coded Allergies Type Severity Reaction Last Updated Verified lisinopril Allergy Intermediate Cough 10/16/14 Yes tramadol Allergy Intermediate rash 03/02/17 Yes latex Allergy Unknown 11/26/21 Yes (FELIX GARNER APRN) Physical Exam: PE: Constitutional: Well developed, well nourished, no acute distress, non-toxic appearance. [] HENT: Normocephalic, atraumatic, bilateral external ears normal, oropharynx moist, no oral exudates, nose normal. [] Eyes: PERRLA, EOMI, conjunctiva normal, no discharge. [] Neck: Normal range of motion, no tenderness, supple, no stridor. [] Cardiovascular:Heart rate regular rhythm, no murmur [] Lungs & Thorax: Bilateral breath sounds wheezes noted, increased work of breathing noted, patient unable to talk in complete sentences Abdomen: Bowel sounds normal, soft, no tenderness, no masses, no pulsatile masses. [] Skin: Warm, dry, no erythema, no rash. [] Back: No tenderness, no CVA tenderness. [] Extremities: No tenderness, no cyanosis, no clubbing, ROM intact, no edema. [] Neurologic: Alert and oriented X 3, normal motor function, normal sensory function, no focal deficits noted. [] Psychologic: Affect normal, judgement normal, mood normal. [] (FELIX GARNER APRN) Current Patient Data: Labs: Laboratory Tests Test 11/26/21 18:09 Influenza Type A Antigen Negative (NEGATIVE) Influenza Type B Antigen Negative (NEGATIVE) SARS-CoV-2 Antigen (Rapid) Positive (NEGATIVE) *A Vital Signs: Vital Signs Date Time Temp Pulse Resp B/P (MAP) Pulse Ox O2 Delivery O2 Flow Rate FiO2 11/26/21 18:50 98 Room Air 11/26/21 18:46 92 18 126/69 (88) 11/26/21 17:40 98.1 98.1 (FELIX GARNER APRN) EKG: EKG: [] (FELIX GARNER APRN) Radiology/Procedures: Radiology/Procedures: REASON: COUGH PROCEDURE: CHEST AP ONLY XR CHEST 1V Clinical Indication: Reason: COUGH / Comparison: Two-view chest August 11, 2017. Findings: There is right chest Port-A-Cath, tip is in the upper SVC. The cardiomediastinal silhouette is normal. Right perihilar linear opacities are similar to prior study, probably scarring. Lungs are otherwise clear. There is no pneumothorax. No pleural effusion is appreciated. No acute bone abnormality. IMPRESSION: No acute cardiopulmonary process. Electronically signed by: Marlon Richey MD (11/26/2021 8:07 PM) [facility] [] (FELIX GARNER APRN) Course & Med Decision Making: Course & Med Decision Making Pertinent Labs and Imaging studies reviewed. (See chart for details) 1920 patient has decreased work of breathing, able to talk in complete sentenc es, sats are 100% on room air, heart rate is 86. Patient states that she feels much better. Patient has been informed that she is Covid positive. We will get a chest x-ray to make sure the patient does not have pneumonia and discharged home. Patient states she has inhalers at home, will send her home with also some steroids as well and have her follow-up with her primary care physician tomorrow 2020 spoke to patient regarding chest x-ray stated it was normal we will send patient home with prednisone for the next 5 days, will also give her prescription for Zofran because she does get nausea with the prednisone. Encouraged her to use her inhalers every 4 hours as needed. Also instructed her to follow-up with her primary care physician in the a.m. to let them know the status of her Covid positive. O2 sat 97%, HR 74 (FELIX GARNER APRN) Course & Med Decision Making Patients Care and treatment plan provided by ER Nurse Practitioner. I was available for consult. Patient's chart reviewed. (ADALI MANCINI I DO) Susan Disclaimer: Susan Disclaimer: This electronic medical record was generated, in whole or in part, using a voice recognition dictation system. (FELIX GARNER APRN) Departure Departure Impression: Primary Impression: Asthma exacerbation Qualified Codes: J45.21 - Mild intermittent asthma with (acute) exacerbation Additional Impression: COVID-19 Disposition: 01 HOME / SELF CARE / HOMELESS Condition: STABLE Referrals: UNKNOWN PCP NAME (PCP) Patient Instructions: Asthma, Adult Additional Instructions: Prednisone take 60 mg daily for the next 5 days. Inhalers 2 puffs every 4 hours as needed of your albuterol. Tylenol and/or ibuprofen as needed for fever and pain. Cool-mist humidifier to help with cough and congestion. Return to the emergency department for increased work of breathing, fever not controlled with Tylenol and/or ibuprofen, or having increased wheezes with use of inhaler. You have been tested for or diagnosed with COVID-19. It is an infection caused by a new type of coronavirus. COVID-19 will cause cold-like or mild flu symptoms in most. It can cause more severe symptoms like problems breathing in some. There is no treatment for COVID-19. The body will clear the infection over time. Self-care will help to ease discomfort. Steps to Take: Self-Care Rest as needed. Healthy habits may help you feel better. Steps include: Choose healthy foods including fruits and vegetables. Drink water throughout the day. Get plenty of sleep each night. If you smoke, try to quit. It may ease breathing. Avoid alcohol. Keep Others Healthy The virus can spread to others. Droplets are released every time you sneeze or cough. The droplets can get into the mouth, nose, or eyes of people near you and lead to infection. To lower the chances of spreading COVID-19 to others: Stay at home until your doctor has said it is safe to leave. If you tested positive this will mean staying isolated until both of the following are true: At least 14 days have passed since the start of illness. You are free of fever for at least 72 hours without the use of medicine. During this time: - Avoid public areas, events, or transportation. Do not return to work or school until your doctor has said it is safe to do so. - Call ahead if you need to go to a medical center. Let them know you may have COVID-19. It will help them guide you where to go. They may also ask you to wear a facemask when you come to the office. - If you call for emergency medical services, let them know you may have COVID- 19. While at home: - Try to avoid close contact with others. Stay about 6 feet away. - If possible, spend most of your time in a separate room from others. - Use a face mask if you will be in close contact with others such as sharing a room or vehicle. - Have someone wipe down common surfaces in the home. Use household strand buncher fine wire every day on areas like doorknobs, counters, or sinks. - Cough or sneeze into a tissue. Throw the tissue away right after use. If a tissue is not available, cough or sneeze into your elbow. - Wash your hands often. Wash them after sneezing or coughing. Use soap and water and wash for at least 20 seconds. Alcohol based hand drain cleaner plumber can be used if soap and water is not available. - Do not prepare food for others. Avoid sharing personal items like forks, spoons, or toothbrushes. - Avoid close contact with pets while you are sick. There is no evidence of the virus passing to pets. This is a safety step until more is known about this virus. Isolation can be frustrating. Social interaction can help. Keep in touch with friends and family through phone and tech options. You can still interact with others in your home, just keep a safe distance of about 6 feet. Follow-up: Your doctors office will check in with you to see if there are any changes in your health. You may be asked to keep track of symptoms to share with them. They will also let you know when you are clear to be in public again. Problems to Look Out For: Contact your doctor if your recovery is not going as you expect. Get emergency care if you have problems such as: - Trouble breathing - Nonstop chest pain or pressure - Changes in awareness, confusion, or problems waking - Lips or face have bluish color - Worsening of symptoms If you think you have an emergency, call for emergency medical services right away. As taken from [facility] Ondansetron Hcl (ZOFRAN) 4 Mg Tablet 1 TAB PO PRN Q6HRS PRN for NAUSEA, #20 TAB Prov: FELIX GARNER STRAP MAKING MACHINE OPERATOR 11/26/21 Prednisone (PREDNISONE) 20 Mg Tablet 3 TAB PO DAILY for 5 Days, #15 TAB Prov: FELIX GARNER STRAP MAKING MACHINE OPERATOR 11/26/21 FELIX GARNER APRN Nov 26, 2021 19:23 ADALI MANCINI DO Nov 27, 2021 18:32
--- NOTE | 2021-11-26 20:10 | RAD ---
XR CHEST 1V Clinical Indication: Reason: COUGH / Comparison: Two-view chest August 11, 2017. Findings: There is right chest Port-A-Cath, tip is in the upper SVC. The cardiomediastinal silhouette is normal . Right perihilar linear opacities are similar to prior study, probably scarring. Lungs are otherwise clear. There is no pneumothorax. No pleural effusion is appreciated. No acute bone abnormality. IMPRESSION: No acute cardiopulmonary process. Electronically signed by: Marlon Richey MD (11/26/2021 8:07 PM) [facility]
[2021-11-26] MEDS ORDERED: PRED20TA PO (20:27)
[2021-11-26] MEDS ORDERED: ONDA4TAB7 PO (20:27)
[2021-11-26 20:46] VITALS: BP 149/79
== END 2021-11-26 20:54 | disposition home or self-care (01) ==
LOC: ER 13:55
DX: U07.1 COVID-19 (principal); J45.21 Mild intermittent asthma with (acute) exacerbation; E11.9 Type 2 diabetes mellitus without complications; E78.00 Pure hypercholesterolemia, unspecified; I10 Essential (primary) hypertension; Z91.040 Latex allergy status; Z88.6 Allergy status to analgesic agent
CPT/HCPCS: 71045; 87426; 87804; 94640; 99284; J7512